=== PATIENT | female | born 1960 | race Caucasian/White ===

== ENCOUNTER → 2017-05-24 | Outpatient (CLI) | payer BC ==
[~2017-05-24] MED LIST: ASPI81TA28 PO; ATV5X PO; CALC-51 PO; FEXO1TAB45 PO; IBUP-1050 PO; PENT100C6 PO; SIMV10TA2 PO
--- NOTE | 2017-05-24 10:15 | DIAGNOSTIC IMAGING REPORT ---
THORACIC SPINE 3 VIEWS CLINICAL HISTORY: Right-sided thoracic strain. FINDINGS: AP, lateral, and swimmer's views of the thoracic spine are obtained. No prior studies are available for comparison at the time of dictation. The skeletal structures are osteopenic. There is no radiographic evidence of fracture or malalignment involving the thoracic spine. Vertebral body height is maintained. Mild hyperkyphosis is observed. Small anterior osteophytes are seen throughout. Mild disc space narrowing is seen in the upper to midthoracic region. The transverse processes and pedicles appear intact as seen on the frontal view. The lung parenchyma is clear as imaged. IMPRESSION: 1. No acute bony abnormalities seen involving the thoracic spine. 2. Osteopenia with mild degenerative change and hyperkyphosis as above. Electronically signed by: Rashaun Kirby M.D. 05/24/2017 10:14 AM Dictated Date/Time: 05/24/2017 10:13 AM
== END | disposition home or self-care (01) ==
LOC: C.RADBC 09:51
PROVIDERS: ATTEND Anesthesiology
DX: S23.3XXA Sprain of ligaments of thoracic spine, initial encounter (principal); X58.XXXA Exposure to other specified factors, initial encounter; M85.80 Other specified disorders of bone density and structure, unspecified site; M40.294 Other kyphosis, thoracic region